=== PATIENT | female | born 1955 | race Caucasian/White ===

== ENCOUNTER 2024-11-16 13:46 | Outpatient (REF) | payer MEDICARE, MEDICAID, SELFPAY ==
--- NOTE | 2024-11-16 | EMG_ITS ---
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 EMG shows no voluntary electrical activity in the left UE DB muscle but is otherwise unremarkable and the left L4-S1 innervated muscles. Please see the complete electrophysiological report MTDD
--- OUTSIDE RECORDS SUMMARY | 2024-11-16 14:47 | XMS_ITS | Clinical Summary ---
Author Organization Patient Business Ser [facility] Address [address] [place] [address] Care Team Providers Care Agricultural Equipment Mechanic Name Role Phone Michelle King Primary Care Provider + Allergies No known active allergies Medications ARIPiprazole (ABILIFY) 2 mg tablet Take 1 tablet (2 mg total) by mouth at bedtime. 07/24/19 24 Active pantoprazole (PROTONIX) 40 mg EC tablet Take 1 tablet (40 mg total) by mouth 2 (two) times a day. Active ibuprofen (ADVIL,MOTRIN) 800 mg tablet Take 1 tablet (800 mg total) by mouth 1 (one) time each day if needed for moderate pain. 03/26/20 22 Active ondansetron (ZOFRAN) 4 mg tablet TAKE 1 TABLET BY MOUTH EVERY 8 HOURS NEEDED FOR NAUSEA 90 tablet 1 06/01/19 25 Active Additional Information Patient taking differently: 4 mg oral Every 8 hours PRN, nausea, Reported on 07/06/2024 venlafaxine HCl (venlafaxine ER) 225 mg 24 hr tablet Take 1 tablet (225 mg total) by mouth 1 (one) time each day. Take in addition to 37.5mg daily 07/01/19 25 Active venlafaxine HCl (venlafaxine ER) 37.5 mg 24 hr tablet Take 1 tablet (37.5 mg total) by mouth 1 (one) time each day. Take in addition to 225mg daily 05/11/19 25 Active hydrOXYzine pamoate (VISTARIL) 50 mg capsuleIndicatio ns:Anxiety Take 1 capsule (50 mg total) by mouth 3 (three) times a day if needed for anxiety. 30 capsule 07/09/19 25 Active oxyCODONE (ROXICODONE) 5 mg immediate release tabletIndication s:Alcohol-induce d acute pancreatitis without infection or necrosis Take 1 tablet (5 mg total) by mouth 1 (one) time each day if needed for severe pain. Max Daily Amount: 5 mg 10 tablet 07/31/19 25 Active LORazepam (ATIVAN) 2 mg tablet Take 1 tablet (2 mg total) by mouth at bedtime. 07/21/19 25 Active thiamine 100 mg tabletIndication s:Alcohol-induce d acute pancreatitis without infection or necrosis Take 1 tablet (100 mg total) by mouth 1 (one) time each day. 90 tablet 3 08/07/19 25 026 Active rOPINIRole (REQUIP) 1 mg tablet TAKE 1 TABLET BY MOUTH TWICE A DAY 180 tablet 1 09/09/19 25 Active raloxifene (EVISTA) 60 mg tablet TAKE 1 TABLET BY MOUTH 1 TIME EACH DAY. 90 tablet 1 09/11/19 25 Active lisinopriL (PRINIVIL,ZESTRI L) 5 mg tabletIndication s:Primary hypertension Take 1 tablet (5 mg total) by mouth 1 (one) time each day. 90 tablet 1 09/14/19 25 Active gabapentin (NEURONTIN) 300 mg capsule Take 1 capsule (300 mg total) by mouth 3 (three) times a day. 270 each 3 09/17/19 25 026 Active fluticasone propionate (FLONASE) 50 mcg/actuation nasal spray Administer 1 spray into each nostril 2 (two) times a day. Shake gently. Before first use, prime pump. After use, clean tip and replace cap. 16 g 3 10/18/19 25 Active folic acid (FOLVITE) 1 mg tabletIndication s:Alcohol-induce d acute pancreatitis without infection or necrosis Take 1 tablet (1 mg total) by mouth 1 (one) time each day. 90 each 3 11/06/19 25 026 Active folic acid (FOLVITE) 1 mg tabletIndication s:Alcohol-induce d acute pancreatitis without infection or necrosis Take 1 tablet (1 mg total) by mouth 1 (one) time each day. 90 each 3 08/07/19 25 025 Discontin ued(Reord er) Active Problems Problem Noted Date Diagnosed Date Hallux varus (acquired), right foot 10/12/2024 Hammertoe of right foot 10/12/2024 Contracture, right foot 10/12/2024 Metatarsalgia of right foot 10/12/2024 Insomnia 04/27/2021 Alcoholism ([facility] V24, [facility] V28) 03/16/2021 Overview (01/08/2024): Per 10/17/2020 wellness visit, quit drinking 20 yrs ago after drinking for years. Allergic rhinitis 03/16/2021 Anxiety and depression 03/16/2021 DDD (degenerative disc disease), lumbar 03/16/20 Overview (01/08/2024): 03/15/2020 L3-4 and L4-5. Grade 1, 3.9mm anterior spondylolisthesis L4 relative to L5. R sided facet joint disease. Diverticulosis 03/16/2021 GERD (gastroesophageal reflux disease) Assessment & Plan (03/16/2024 3:19 PM EST): Gout 03/16/2021 HTN (hypertension) 03/16/2021 ALEXIS (obstructive sleep apnea) 03/16/2021 Osteoporosis 03/16/2021 Peripheral neuropathy 03/16/2021 Restless leg syndrome 03/16/2021 Varicose veins of lower extremity 03/16/2021 Overview (01/08/2024): Bilaterally w/ pain. Vitamin D deficiency 03/16/2021 Resolved Problems Problem Noted Date Diagnosed Date Resolved Date Alcohol withdrawal syndrome with complication ([facility] V24, [facility] V28) 07/06/2024 07/08/2024 Anxiety 03/16/2021 07/30/2024 Encounters Date Type Department Care Team Description 11/04/2024 Telephone Gastroenterology - [address] [place] [address] Joyce Quinn PA 11/02/2024 3:00 PM EDT Office Visit Internal Medicine - [place] [facility] [address] [place] [phone] Michelle King PA Primary hypertension (Primary Dx); Alcohol-induced acute pancreatitis without infection or necrosis; Anxiety and depression 10/26/2024 2:15 PM EDT - 10/26/2024 11:59 PM EDT Hospital Encounter [facility] MRI [address] [place] [id number] Pancreatic lesion Discharge Disposition: Home or Self Care 10/13/2024 Telephone Orthopedic Surgery [place] [address] [phone] Joe Mercado DPM SURGERY 10/12/2024 2:45 PM EDT Office Visit Orthopedic Surgery [place] [address] [phone] Joe Mercado DPM Hallux varus (acquired), right foot (Primary Dx); Hammertoe of right foot; Contracture, right foot; Metatarsalgia of right foot 09/27/2024 2:45 PM EDT Office Visit Orthopedic Surgery [place] [address] [phone] Joe Mercado DPM Metatarsalgia of right foot (Primary Dx); Arthritis of both feet; Contracture, right foot 09/21/2024 3:00 PM EDT Procedure visit Orthopedic Surgery [place] [address] [phone] Joe Mercado DPM Metatarsalgia of right foot (Primary Dx); Arthritis of both feet; Hammertoe of left foot; Contracture, right foot 09/16/2024 Telephone Orthopedic Surgery [place] [address] [phone] Joe Mercado DPM my chart message 09/14/2024 2:45 PM EDT Office Visit Orthopedic Surgery [facility] [address] [phone] Joe Mercado DPWindy Right foot pain (Primary Dx); Arthritis of both feet; Metatarsalgia of right foot; Contracture, right foot; Capsulitis of left foot 09/07/2024 2:00 PM EDT Office Visit Orthopedic Surgery - [place] [address] [facility] [address] [place] [phone] Joe Mercado DPM Right foot pain (Primary Dx); Pain in left foot; Arthritis of both feet; Metatarsalgia of right foot 08/31/2024 3:15 PM EDT Office Visit Internal Medicine - [place] 175 [facility] [address] [place] [address] Michelle King PA Alcohol-induced acute pancreatitis without infection or necrosis (Primary Dx); Alcohol use disorder from Last 3 Months Surgical History Surgery Date Site/Laterality Comments ESOPHAGOGASTRODUODENOSCOPY 12/06/2014 PROCEDURE: TN ESOPHAGOGASTRODUODENOSCOPY TRANSORAL DIAGNOSTIC; COMMENT: Normal OTHER SURGICAL HISTORY 04/2018 Left PROCEDURE: TN ARTHRS WRST EXC&/RPR TRIANG FIBROCART&/JOINT; COMMENT: w/ ulnar shortening osteotomy L forearm. OTHER SURGICAL HISTORY Right right foot bunionecyomy Medical History Medical History Date Comments Restless leg syndrome 03/16/2021 DX:Restles s leg syndrome HTN (hypertension) 03/16/2021 DX:HTN (hyper tension) GERD (gastroesophageal reflu x disease) 03/16/2021 DX:GERD (gastroesophageal re flux disease) Gout 03/16/2021 DX:Gout History of fracture of phala nx of toe 03/16/2021 DX:History of fracture of ph alanx of toe; COMMENT: R hallux proximal phalanx fracture 10/2017. DDD (degenerative disc disea se), lumbar 03/16/2021 DX:DDD (degenerative disc di sease), lumbar; COMMENT: 03/15/2020 L3-4 and L4-5. Grade 1, 3.9mm anterior spondylolisthesis L4 relative to L5. R sided facet joint disease. Osteoporosis 03/16/2021 DX:Osteoporosis History of basal cell carcinoma 03/16/2021 DX:History of basal cell carcinoma; COMMENT: Below R eye. 06/2016 Alcoholism ([facility] V24, [facility] V28) 03/16/2021 DX:Alcoholism ([facility]) Diverticulosis 03/16/2021 DX:Diverticulosi s History of herpes zoster 03/16/2021 DX:Hist ory of herpes zoster; COMMENT: 07/12/2017 Varicose veins of lower extremity 03/16/2021 DX:Varicose veins of lower extremity; COMMENT: Bilaterally w/ pain. Allergic rhinitis 03/16/2021 DX:Allergic rh initis Vitamin D deficiency 03/16/2021 DX:Vitamin D deficiency ALEXIS (obstructive sleep apnea) 03/16/2021 DX :ALEXIS (obstructive sleep apnea) Anxiety and depression DX:Anxiet y and depression Insomnia DX:Insomnia Family History Medical History Relation Name Comments Anxiety disorder Brother Hypertension Brother Relation Name Status Comments Brother Alive Father Mother Social History Tobacco Use Types Packs/Day Years Used Date Smoking Tobacco: Former Cigarettes Q uit: 04/07/2001 Smokeless Tobacco: Never Alcohol Use Standard Drinks/Week Comments Yes 0 (1 standard drink = 0.6 oz pur e alcohol) Housing Instability Answer Date Recorde d Are you worried that in the next 2 months you may not have stable housing? No 04/19/2024 Food Access & Nutrition Answer Date Rec orded Do you have access to a vari ety of food including fruits and vegetables? Yes 07/08/2024 Access to Healthcare Answer Date Record ed Within the last 3 months, ho w many times did you visit the emergency department for your medical care? 0 04/19/2024 Health Literacy Answer Date Recorded How often do you need to hav e someone help you when you read instructions, pamphlets, or other written material from your doctor or pharmacy? Never 04/19/2024 Caregiver: How often do you need to have someone help you when you read instructions, pamphlets, or other written material from your doctor or pharmacy? Not on file 04/19/2024 Financial Risk Answer Date Recorded How hard is it for you to pa y for the very basics like food, housing, medical care, and air conditioning / heating? Not very hard 04/19/2024 Transportation Answer Date Recorded Has the lack of transportati on kept you from meetings, work, or from getting things needed for daily living? No Has the lack of transportati on kept you from medical appointments or from getting medications? No 04/19/2024 Social Isolation Answer Date Recorded How often do you feel lonely or isolated from those around you? Sometimes 04/19/2024 Food Risk Answer Date Recorded Within the past 12 months we worried whether our food would run out before we got money to buy more. Never true 07/08/2024 Within the past 12 months th e food we bought just didn't last and we didn't have money to get more. Never true 07/08/2024 Dependent Care Answer Date Recorded Do you need help finding or paying for care for your loved ones. For example, child and youth program assistant or elderly care for an older adult? No 04/19/2024 Education Answer Date Recorded Do you think completing more education or training, like finishing a GED, going to college, or learning a trade, would be helpful for you? No 04/19/2024 Employment and Income Answer Date Recor ded During the last four weeks, have you been actively looking for work? No 04/19/2024 Living Situation Answer Date Recorded What is your living situation? 0 04/19/2024 Interpersonal Safety Answer Date Record ed Physical Abuse 07/06/2024 Verbal Abuse 07/06/2024 Comments Unknown Sex and Gender Information Value Date Recorded Sex Assigned at Not on file Legal Sex Female 11:36 AM EST Gender Identity Not on file Sexual Orientation Not on file Occupation Industry Job Start Date Job End Date retired- Not on file Not on file Not on file Obstetrics History Para Term AB IAB SAB Ectopic Multiple Livin g Live Births 2 1 1 1 1 1 1 Date Outcome GA Total Labor Labor/2nd/3rd Weight Sex Type Anes PTL Faustina A1 A5 Name Clin SAB 1992 Term M Living Last Filed Vital Signs Vital Sign Reading Time Taken Comments Blood Pressure 116/70 11/02/2024 2:45 PM EDT Pulse 96 11/02/2024 2:45 PM EDT Temperature 36.3 C (97.3 F) 11/02/2024 2:45 PM EDT Respiratory Rate 13 07/08/2024 3:53 PM EDT Oxygen Saturation 96% 11/02/2024 2:45 PM EDT Inhaled Oxygen Concentration - - Weight 70.6 kg (155 lb 9.6 oz) 11/02/2024 2:45 P M EDT Height 157.5 cm (5' 2 ) 11/02/2024 2:45 PM EDT Body Mass Index 28.46 11/02/2024 2:45 PM EDT Plan of Treatment Upcoming Encounters Date Type Department Care Team (Late st Contact Info) Description 12/21/2024 3:30 PM EDT Office Visit Gastroenterology - [address] [place] [phone] Joyce Quinn PA [address] [place] [address] 01/25/2025 2:15 PM EDT Office Visit Internal Medicine - [place] [address] [facility] [address] [place] [phone] Michelle King PA [facility] [address] [place] [address] Scheduled Procedures Name Priority Associated Diagnoses Date/Ti me OSTEOTOMY METATARSAL Hallux varus (acquired), right foot Hammertoe of right foot Contracture, right foot Metatarsalgia of right foot REPAIR HAMMER TOE Hallux varus (acquired), right foot Hammertoe of right foot Contracture, right foot Metatarsalgia of right foot IMPLANT TO DIGIT OR LESSER METATARSAL Hallux varus (acquired), right foot Hammertoe of right foot Contracture, right foot Metatarsalgia of right foot OSTECTOMY FIXATION METATARSA L FIRST Hallux varus (acquired), right foot Hammertoe of right foot Contracture, right foot Metatarsalgia of right foot Health Maintenance Due Date Last Done Comments DTaP,Tdap,and Td Vaccines (1 - Tdap) 02/06/1975 Hepatitis A Vaccines (1 of 2 - Risk 2-dose series) 02/06/1975 Pneumococcal Vaccine: 50+ Years (1 of 2 - PCV) 02/06/1975 Zoster Vaccines (1 of 2) 02/06/1975 Hepatitis C Screening 04/27/2021 Medicare Annual Wellness Visit 04/27/2021 COVID-19 Vaccine ( season) 2023 04/03/2021, 08/19/2020, 07/20/2020 Influenza Vaccine (#1) 2024 Breast Cancer Screening 03/04/2025 03/04/2023 Social Influencers of Health Screening 07/08/2025 07/08/2024 Hypertension/CHF/CAD Annual BMP Blood Test 08/06/2025 08/06/2024, 07/08/2024, 07/07/2024, Additional history exists Falls Risk Assessment 11/02/2025 11/02/2024 , 07/08/2024, 04/26/2024 Cholesterol Screening (Lipid Panel) 08/18/2028 08/19/2023, 08/19/2023 Osteoporosis Screening (Bone Density Screening) 11/07/2030 11/07/2020, 11/07/2020 RSV Immunization Adult Patients (1 - 1-dose 75+ series) 02/06/2031 Colorectal Cancer Screening: Colonoscopy 03/23/2034 03/23/2024, 02/26/2019 Depression Screening Completed 10/26/2024 HIB Vaccines Aged Out No longer eligi ble based on patient's age to complete this topic HPV Vaccines Aged Out No longer eligi ble based on patient's age to complete this topic Hepatitis B Vaccines Aged Out No long er eligible based on patient's age to complete this topic IPV Vaccines Aged Out No longer eligi ble based on patient's age to complete this topic MMR Vaccines Aged Out No longer eligi ble based on patient's age to complete this topic Meningococcal ACWY Vaccine Aged Out N o longer eligible based on patient's age to complete this topic Meningococcal B Vaccine Aged Out No l onger eligible based on patient's age to complete this topic RSV Immunization Patients Under 20 months Aged Out No longer eligible based on patient's age to complete this topic Varicella Vaccines Aged Out No longer eligible based on patient's age to complete this topic Procedures Procedure Name Priority Date/Time Associated Diagnosis Comments MR ABDOMEN WO AND W CONTRAST MRCP Routine 10/26/2024 4:01 PM EDT Pancreatic lesion INJECTION TENDON OR LIGAMENT Routine 09/14/2024 2:45 PM EDT Capsulitis of left foot COMPREHENSIVE METABOLIC PANEL Routine 08/06/2024 3:12 PM EDT Alcohol-induced acute pancreatitis without infection or necrosis EXTERNAL COLONOSCOPY REPORT Routine 03/23/2024 11:24 AM EST LIPID PANEL Routine 08/19/2023 EXTERNAL MAMMOGRAM REPORT Routine 03/04/2023 1:52 PM EST ELIZABETH DEXA AXIAL SKELETON Routine 11/07/2020 2:58 PM EDT Age-related osteoporosis without current pathological fracture from Last 3 Months or Most Recently Relevant to Health Maintenance Results * MR Abdomen wo and w Contrast MRCP (10/26/2024 4:01 PM EDT) Anatomical Region Laterality Modality Body Magnetic Resonan ce 10/26/2024 5:07 PM EDT Impressions 10/26/2024 5:31 PM EDT There has been interval definition of a well-circumscribed fluid collection in the root of the mesentery closely related to the pancreas. Although this has slightly increased in overall size it has become much better defined and there is no internal enhancement. There is some T1 intrinsic hyperintensity which could represent high protein or blood products. The findings are now most likely related to pseudocyst. There is no longer any stranding of the peripancreatic soft tissues. There is no cholelithiasis or choledocholithiasis. No generalized dilation of the pancreatic duct. -------- FINAL REPORT -------- Dictated By: Salvador Sifuentes Dictated Date: 10/26/2024 17:07 ET Assigned Physician: Salvador Sifuentes Reviewed and Electronically Signed By: Salvador Sifuentes Signed Date: 10/26/2024 17:31 ET Workstation ID: [id number] Transcribed By: Self Edit Transcribed Date: 10/26/2024 17:07 ET Narrative 10/26/2024 5:31 PM EDT EXAMINATION: MRI ABDOMEN WITHOUT AND WITH IV CONTRAST CLINICAL INFORMATION: Pancreatic cyst/pseudocyst. Previous abnormal CT. Previous abnormal MRI. Evaluate for interval changes. COMPARISON: Portions of previous MRI 07/07/24. Portions of previous CT 07/06/24. TECHNIQUE: Anatomic and fluid sensitive MR sequences were obtained on a high-field platform to examine the abdomen. MRCP was performed. Imaging before and after the IV administration of contrast. Amount of IV contrast: 15 mL Type of contrast: Dotarem Volume of contrast discarded: 0 mL FINDINGS: The study is significantly limited due to motion. LIVER: The right lobe of the liver measures approximately 14.5 cm. The liver contour appears smooth. The background hepatic signal appears homogeneous. There is no suspicious focal liver lesion. BILIARY TRACT: There is no cholelithiasis or gallbladder wall thickening. No localized pericholecystic fluid. MRCP: There is no biliary dilation. No definite choledocholithiasis. Limited by motion. SPLEEN: The spleen measures 8.9 cm. No suspicious abnormality. PANCREAS: Abnormal. There is no significant pancreatic ductal dilation. The stranding in the peripancreatic fat on the previous studies has improved/resolved. There is a circumscribed T2 intense abnormality in the root of the mesentery closely related to the neck of the pancreas with mass effect upon the superior mesenteric vein. This measures approximately 3.2 x 1.9 x 1.8 cm. There are a few internal low signal components. There is a fairly well-defined distinct wall now present. This has hyperintensity on anatomic sequence and there is no significant enhancement. This has become much better defined and slightly larger. There is no internal enhancement. There is no other discrete peripancreatic collection. There is no definite evidence of a pseudoaneurysm. ADRENAL GLANDS: No suspicious abnormality. KIDNEYS: There are some T2 intense structures centrally likely parapelvic cysts. No suspicious renal mass. The kidneys enhance symmetrically. GASTROINTESTINAL TRACT: There is no definite bowel wall thickening. There is a small hiatal hernia. ABDOMINAL WALL: No significant hernia is appreciated. LYMPHOVASCULAR STRUCTURES AND FLUID: There is no abdominal aortic aneurysm. The portal vein enhances. No enlarged lymph nodes. No significant free fluid in the upper abdomen MUSCULOSKELETAL: No acute or suspicious osseous abnormality. VISUALIZED LOWER CHEST: No suspicious abnormality. Large [id number] localizing sequences suggest small uterine fibroids. This is not well evaluated. Procedure Note Salvador Sifuentes MD - 10/26/2024 EXAMINATION: MRI ABDOMEN WITHOUT AND WITH IV CONTRAST CLINICAL INFORMATION: Pancreatic cyst/pseudocyst. Previous abnormal CT. Previous abnormal MRI.Evaluate for interval changes. COMPARISON: Portions of previous MRI 07/07/24. Portions of previous CT 07/06/24. TECHNIQUE: Anatomic and fluid sensitive MR sequences were obtained on a high-fieldplatform to examine the abdomen. MRCP was performed. Imaging before and after the IV administration of contrast. Amount of IV contrast: 15 mL Type of contrast: Dotarem Volume of contrast discarded: 0 mL FINDINGS: The study is significantly limited due to motion. LIVER: The right lobe of the liver measures approximately 14.5 cm. Theliver contour appears smooth. The background hepatic signal appearshomogeneous. There is no suspicious focal liver lesion. BILIARY TRACT: There is no cholelithiasis or gallbladder wall thickening.No localized pericholecystic fluid. MRCP: There is no biliary dilation. No definite choledocholithiasis.Limited by motion. SPLEEN: The spleen measures 8.9 cm. No suspicious abnormality. PANCREAS: Abnormal. There is no significant pancreatic ductal dilation. The stranding in theperipancreatic fat on the previous studies has improved/resolved. There is a circumscribed T2 intense abnormality in the root of themesentery closely related to the neck of the pancreas with mass effectupon the superior mesenteric vein. This measures approximately 3.2 x 1.9 x1.8 cm. There are a few internal low signal components. There is a fairlywell-defined distinct wall now present. This has hyperintensity onanatomic sequence and there is no significant enhancement. This has becomemuch better defined and slightly larger. There is no internal enhancement. There is no other discrete peripancreatic collection. There is no definite evidence of a pseudoaneurysm. ADRENAL GLANDS: No suspicious abnormality. KIDNEYS: There are some T2 intense structures centrally likely parapelviccysts. No suspicious renal mass. The kidneys enhance symmetrically. GASTROINTESTINAL TRACT: There is no definite bowel wall thickening. Thereis a small hiatal hernia. ABDOMINAL WALL: No significant hernia is appreciated. LYMPHOVASCULAR STRUCTURES AND FLUID: There is no abdominal aorticaneurysm. The portal vein enhances. No enlarged lymph nodes. No significant free fluid in the upper abdomen MUSCULOSKELETAL: No acute or suspicious osseous abnormality. VISUALIZED LOWER CHEST: No suspicious abnormality. Large [id number] localizing sequences suggest small uterine fibroids.This is not well evaluated. IMPRESSION: There has been interval definition of a well-circumscribed fluidcollection in the root of the mesentery closely related to the pancreas. Although this has slightly increased in overall size it has become muchbetter defined and there is no internal enhancement. There is some [id number] hyperintensity which could represent high protein or bloodproducts. The findings are now most likely related to pseudocyst. There is no longer any stranding of the peripancreatic soft tissues. Thereis no cholelithiasis or choledocholithiasis. No generalized dilation of the pancreatic duct. -------- FINAL REPORT -------- Dictated By: Salvador Sifuentes Dictated Date: 10/26/2024 17:07 ET Assigned Physician: Salvador Sifuentes Reviewed and Electronically Signed By: Salvador Sifuentes Signed Date: 10/26/2024 17:31 ET Workstation ID: [id number] Transcribed By: Self Edit Transcribed Date: 10/26/2024 17:07 ET Namrata LONGO IMJordon MRI PROCEDURES Final R esult * Injection tendon or ligament (09/14/2024 2:45 PM EDT) Narrative Joe Mercado DPM - 09/14/2024 2:45 PM EDT Joe Mercado DPM 09/14/2024 6:52 PM Injection tendon or ligament Indications: pain Details: 25 G needle Medications: 0.5 mL lidocaine (PF) 1 %; 40 mg triamcinolone acetonide 40 mg/mL Informed Consent: Laterality: Left Joe Mercado DPM IN CLINIC/BEDSIDE ORDERABLE S Final Result * (ABNORMAL) Comprehensive metabolic panel (08/06/2024 3:12 PM EDT) Sodium 136 133 - 145 mmol/L LAB CHEMISTRY METHOD 08/06/2024 4:43 PM EDT [facility] Potassium 3.5 3.5 - 5.5 mmol/L LAB CHEMISTRY METHOD 08/06/2024 4:43 PM EDT [facility] Chloride 101 96 - 110 mmol/L LAB CHEMISTRY METHOD 08/06/2024 4:43 PM EDT [facility] CO2 25 21 - 32 mmol/L LAB CHEMISTRY METHOD 08/06/2024 4:43 PM EDT [facility] Anion Gap 10 3 - 11 LAB CHEMISTRY METHOD 08/06/2024 4:43 PM [facility] Glucose 100 70 - 100 mg/dL LAB CHEMISTRY METHOD 08/06/2024 4:43 PM [facility] BUN 11 5 - 25 mg/dL LAB CHEMISTRY METHOD 08/06/2024 4:43 PM [facility] Creatinine 0.46(L) 0.50 - 1.10 mg/dL LAB CHEMISTRY METHOD 08/06/2024 4:43 PM [facility] eGFR 104 >=60 mL/min/1. 73m2 LAB CHEMISTRY METHOD 08/06/2024 4:43 PM [facility] Comment:Calculation based on the Chronic Kidney Disease Epidemiology Collaboration (CKD-EPI) equation refit without adjustment for race. BUN/Creatinine Ratio 23.9 LAB CHEMISTRY METHOD 08/06/2024 4:43 PM [facility] Calcium 9.9 8.5 - 10.5 mg/dL LAB CHEMISTRY METHOD 08/06/2024 4:43 PM [facility] AST (SGOT) 12 10 - 42 unit/L LAB CHEMISTRY METHOD 08/06/2024 4:43 PM [facility] ALT (SGPT) 16 10 - 60 unit/L LAB CHEMISTRY METHOD 08/06/2024 4:43 PM [facility] Alkaline Phosphatase 69 42 - 121 unit/L LAB CHEMISTRY METHOD 08/06/2024 4:43 PM [facility] Total Protein 6.5 6.0 - 8.0 g/dL LAB CHEMISTRY METHOD 08/06/2024 4:43 PM [facility] Albumin 3.5 3.2 - 5.0 g/dL LAB CHEMISTRY METHOD 08/06/2024 4:43 PM [facility] Total Bilirubin 0.3 0.0 - 1.4 mg/dL LAB CHEMISTRY METHOD 08/06/2024 4:43 PM EDT [facility] Blood Venous blood specimen / Unknown Venipuncture / Unknown 08/06/2024 3:12 PM EDT 08/06/2024 3:37 PM EDT Simran Robin SNOW REMOVING SUPERVISOR LAB BLOOD ORDERABLES Final Re sult [facility] [address] [place] [address], [place] [phone] * External Colonoscopy Report (03/23/2024 11:24 AM EST) Anatomical Region Laterality Modality Endoscopy Historical Provider GI~PROCEDURE ORDERABLES F inal Result * (ABNORMAL) Lipid panel (08/19/2023) LDL/HDL Ratio 2 0 - 4 Triglycerides 62 0 - 150 mg/dL Cholesterol 239(A) 0 - 200 mg/dL HDL 121 >=40 mg/dL LDL Cholesterol 106(A) 0 - 100 mg/dL Blood Venous blood specimen / Unknown Historical Provider LAB BLOOD ORDERABLES Meredith l Result * External Mammogram Report (03/04/2023 1:52 PM EST) Anatomical Region Laterality Modality Mammography Historical Provider IMG BI PROCEDURES Final R esult * ELIZABETH DEXA AXIAL SKELETON (11/07/2020 2:58 PM EDT) Anatomical Region Laterality Modality Mammography 11/07/2020 12:4 5 PM EDT Narrative 11/07/2020 2:58 PM EDT [facility] Diagnostic Imaging Department [address], [place] [id number] Patient: OLLIE COBIAN /Age/Sex: 1955 - 65 - F Unit#: [id number] Location/Status: SPDIMAM/REG CLI Mnemonic[facility] Ordering Physician: Justin DILLARD MD [facility] Dexa Axial Skeleton - 11/07/201323 HISTORY: The patient is a 65-year-old postmenopausal female with clinical concern for metabolic bone disease. FINDINGS: Dual energy x-ray absorptiometry of the lumbar spine and femurs is performed. The mean bone mineral density at L1-2 is 0.945 gm/cm2 which is 81% of that of young normals and 92% of that of age matched controls. This yields a T- score of -1.8 and a Z-score of -0.7 which is diagnostic of osteopenia. The mean bone mineral density of the femurs bilaterally is 0.766 gm/cm2 which is 76% of that of young normals and 85% of that of age matched controls. This yields a T-score of -1.9 and a Z-score of -1.1 which is diagnostic of osteopenia. However, the T-score of the right femoral neck is -2.6 which is diagnostic of osteoporosis. IMPRESSION: 1. Osteoporosis. 2. FRAX analysis yields a 10-year probability of major osteoporotic fracture of 24.0% and a 10-year probability of hip fracture of 3.2%. Code 24337 Dictating Physician: MANJU TOURE MD Electronically Signed by: MANJU TOURE MD Dic Date/Time: 11/07/201456 Sign date/Time: 11/07/201457 Procedure Note Manju Toure MD - 04/03/2022 [facility] Diagnostic Imaging Department [address] [place] [id number] Patient: OLLIE COBIAN Robel DiggsB./Age/Sex: 1955 65 - F Unit#: [id number] Location/Status: SPDIMAM/REG CLI Mnemonic[facility] Ordering Physician: Justin DILLARD MD Elizabeth Dexa Axial Skeleton - 11/07/201323 HISTORY: The patient is a 65-year-old postmenopausal female withclinical concern for metabolic bone disease. FINDINGS: Dual energy x-ray absorptiometry of the lumbar spine and femursis performed. The mean bone mineral density at L1-2 is 0.945 gm/cm2 which is81% of that of young normals and 92% of that of age matched controls. This yieldsa T- score of -1.8 and a Z-score of -0.7 which is diagnostic of osteopenia. The mean bone mineral density of the femurs bilaterally is 0.766 gm/ri8edjdb is 76% of that of young normals and 85% of that of age matched controls.This yields a T-score of -1.9 and a Z-score of -1.1 which is diagnostic of osteopenia. However, the T-score of the right femoral neck is -2.6 whichis diagnostic of osteoporosis. IMPRESSION: 1. Osteoporosis. 2. FRAX analysis yields a 10-year probability of major osteoporoticfracture of 24.0% and a 10-year probability of hip fracture of 3.2%. Code 57754 Dictating Physician: MANJU TOURE MD Electronically Signed by: MANJU TOURE MD Dic Date/Time: 11/07/20 1457 Sign date/Time: 11/07/20 1458 us Abby Dillard MD IMG BI PROCEDURES Meredith l Result from Last 3 Months or Most Recently Relevant to Health Maintenance Insurance MEDICARE [place]ICA[place] - [place] Advance Directives * Full Code - Confirmed (Latest Code Status on File) Date Activated Date Inactivated Comments 07/06/2024 5:08 PM 07/08/2024 7:50 PM This code stat us was ascertained in the following way: Code status discussion: discussion with patient To update the patient's code status, place a code status order. Do not modify or discontinue any currently active code status orders. * Full Code - Default Date Activated Date Inactivated Comments 07/06/2024 2:57 PM 07/06/2024 5:08 PM This is order is used when code status has not been discussed with the patient, or code status is otherwise unknown/unconfirmed To update the patient's code status, place a code status order. Do not modify or discontinue any currently active code status orders. Care Teams Agricultural Equipment Mechanic Relationship Specialty Start Date End Date Michelle King PA [address] [place] [address] PCP - General Internal Medicine 05/03/21
== END 2024-11-16 13:47 | disposition home or self-care (01) ==
LOC: HO.NEURO 13:46
PROVIDERS: Visit Provider Psychiatry & Neurology Neurology
DX: G62.9 Polyneuropathy, unspecified (principal); R20.0 Anesthesia of skin
CPT/HCPCS: 95885; 95911

== ENCOUNTER → 2024-11-16 14:03 | Outpatient (BNV) | payer MEDICARE, MEDICAID, SELFPAY | PROVIDERS: Visit Provider Psychiatry & Neurology Neurology | DX: G57.32 Lesion of lateral popliteal nerve, left lower limb (principal) | CPT/HCPCS: 95886; 95911 ==

== ENCOUNTER 2024-11-30 14:42 | Outpatient (AMB) | payer MEDICARE, MEDICAID, SELFPAY ==
--- NOTE | 2024-11-30 14:49 | A.OFFVIS_ITS ---
Intake Visit Reasons: PN Allergies No Known Allergies Allergy (Verified 11/23/24 07:29) Medication List - Last Reconciled 11/30/24 by Moraima Bruno MD aripiprazole 3 mg PO QAM fluticasone propionate 50 mcg/actuation intranasal folic acid 1 mg PO DAILY gabapentin 300 mg PO TID hydroxyzine pamoate 50 - 100 mg PO BEDTIME PRN pantoprazole 40 mg PO BID raloxifene 60 mg PO DAILY ropinirole 1 mg PO BID thiamine HCl (vitamin B1) 100 mg PO DAILY venlafaxine ER 225 mg PO DAILY venlafaxine ER 37.5 mg PO DAILY HPI Comments Details: This a 69-year-old woman with a lifelong history of alcohol abuse, drinking 8-9 vodkas a day till about 85 days ago when she quit.? She has a 6-12 month history of numbness, tingling and painful paresthesia in her feet symmetrically.? Recently, she has started? Gabapentin 300 mg 3 times a day, which seems to have helped significantly.? 3 months ago she was hospitalized for pancreatitis and since then she is quit drinking and is taking B1 vitamins, and a multivitamin. 2 months of lightheadedness when she gets up and feels unsteady. No vertigo. Stopped drinking 5 months ago. [facility] Medical History (Updated 11/30/24 @ 14:51 by Moraima Bruno MD) Alcohol abuse Peripheral neuropathy Review of Systems Const Details: Sleep:? Difficulty getting to sleepdenies.? Difficulty maintaining sleepdenies?.? Urge to move legsdenies.? Teeth grindingdenies.? Shouting or Kicking during sleep denies.? Abnormal behavior during sleepdenies.? Excessive sleepdenies.? Snoring denies.? Daytime sleepinessdenies. ???General/Constitutional:? Change in appetitedenies.? Chillsdenies.? Fatiguedenies.? Feverdenies.? Weight gaindenies.? Weight lossdenies. ???Ophthalmologic:? Blurred visiondenies.? Diminished visual acuitydenies. ???ENT:? Stuffinessdenies.? Decreased hearingdenies.? Dry mouthdenies.? Ear paindenies.? Nosebleeddenies.? Ringing in the earsdenies.? Sinus paindenies.? Sore throat denies.? Swollen glandsdenies. ???Endocrine:? Cold intolerancedenies.? Excessive thirstdenies.? Frequent urinationdenies.? Heat intolerancedenies. ???Respiratory:? Shortness of breathdenies.? Chest paindenies.? Coughdenies. ???Breast:? Breast lumpdenies.? Nipple dischargedenies. ???Cardiovascular:? Chest pain at restdenies.? Chest pain with exertiondenies.? Claudicationdenies .? Dizzinessdenies.? Fluid accumulation in the legsdenies.? Irregular heartbeat denies.? Palpitationsdenies. ???Gastrointestinal:? Abdominal paindenies.? Constipationdenies.? Diarrheadenies.? Difficulty swallowingdenies.? Heartburndenies.? Nauseadenies.? Rectal bleedingdenies. ???Hematology:? Easy bruisingdenies.? Prolonged bleedingdenies. ???Genitourinary:? Frequent urinationdenies.? Urgencydenies.? Incontinencedenies.? Erectile Dysfunctiondenies. ???Musculoskeletal:? Neck paindenies.? Back paindenies.? Muscle achesdenies.? Painful jointsdenies.? Sciaticadenies.? Weaknessdenies. ???Podiatric:? Difficulty walkingdenies.? Foot numbnessdenies. ???Neurologic:? Difficulty swallowingdenies.? Balance difficultydenies.? Coordinationnormal.? Difficulty speakingdenies.? Dizzinessdenies.? Faintingdenies.? Gait abnormality denies.? Headachedenies.? Loss of strengthdenies.? Loss of use of extremity denies.? Low back paindenies.? Memory lossdenies.? Seizuresdenies.? Ticsdenies.? Tingling/Numbnessdenies.? Transient loss of visiondenies.? Tremordenies. ???Psychiatric:? Anxietydenies.? Auditory/visual hallucinationsdenies.? Delusionsdenies.? Depressed mooddenies.? Stressorsdenies.? Substance abusedenies.? Suicidal thoughtsdenies. Physical Exam Neuro Other: Neurological: Abnormal neurological findings:??distal blunting of pin prick and vibration in toes.?Mental Status:??alert and oriented X 3,?Normal attention, orientation, memory and affect.?Cranial Nerves:??Pupils are equal, round and reactive to light. Fundoscopy shows normal disc bilaterally. External occular muscles are intact. Visual elliott are full, no ptosis. Face is symmetrical, no facial weakness or droop. Facial sensations are normal. Tongue protrudes in midline. Palate elevates symmetrically. Shoulder shrugging is normal..?Motor Examination:??Normal muscle tone, bulk and strength,?No atrophy or fasciculations,?No drift of the extended upper extremities,?Deep tendon reflexes are 2+?,?Plantars are flexor?.?Motor Strength:?Proximal Muscles (out of 5):5 Distal Muscles (out of 5):5Neck Flexors (out of 5):5Neck Extensors (out of 5):5 Deltoid (out of 5):5Biceps (out of 5):5Triceps (out of 5):5Serratus Anterior (out of 5):5Wrist Extensors (out of 5):5APB (out of 5):5Finger Spread (out of 5):5Ileopsoas (out of 5):5Quadriceps (out of 5):5Hamstrings (out of 5):5Tibialis Anterior (out of 5):5Peronei (out of 5):5EDB (out of 5):5Gastrocnemius (out of 5):5Straight Leg Raising:??90 degrees.?Sensory Exam:??As above, otherwise normal light touch, temperature, pinprick, vibration and joint-position sensations?,?Rhomberg sign is absent.?Coordination:??no ataxia,?no titubation,?fpireg-fg-daho, yjuv-rxtz-dsdw test and rapid alternating movements were normal.?Gait Exam:??Within normal limits.?Cerebellar Signs:??Rlgpqa-ti-xmjq and wmco-bb-ihze is normal,?no dysdiadochokinesia?.?Extrapyramidal System:??No tremor, rigidity with normal facial expressions,?No bradykinesia, no bradyphrenia. Normal arm swing and posture. No propulsion or retropulsion.?Speech:??Normal,?no dysphasia or dysarthria..? Mini Mental Status Exam: Level of Consciousness:??Alert.?Orientation:??Knows correct year, month, date, day and season,?Knows correct city, county and state. Knows correct location and floor.?Registration:??Able to register 3 objects.?Attention:??Serial 7's performed accurately.?Recall:??Able to recall 3 out of 3 objects.?Language:??Normal spontaneous speech, fluency, repetition,naming, comprehension, reading and writing.?Total Score:??30/30.? General Examination: GENERAL APPEARANCE:??normal,?in no acute distress.?HEAD:??normocephalic,?atraumatic.?EYES:??sclera non- icteric,?conjunctiva clear.?EARS:??auditory canal clear,?tympanic membrane intact, clear.?NOSE:??no lesions.?ORAL CAVITY:??gums normal,?mucosa moist,?no lesions.?THROAT:??clear.?NECK/THYROID:??no cervical lymphadenopathy,?thyroid normal,?neck supple, full range of motion,?no carotid bruit.?SKIN:??no rashes,?no significant birthmarks.?HEART:??S1, S2 normal,?no murmurs.?LUNGS:??clear anteriorly and posteriorly.?CHEST:??no gross rib deformity,?clear to auscultation.?BACK:??normal exam of spine.?EXTREMITIES:??no edema.?PERIPHERAL PULSES:??normal.? Results Reviewed Results Reviewed: 11/16/24 NCV/EMG of lower extremities: Complete motor axonal loss in the left peroneal nerve with low sensory amplitude in the sural and superficial peroneal nerves consistent with motor neuropathy of the left peroneal as well as early sensory neuropathy. EMG shows no voluntary electrical activity in the left EDB muscle, but is otherwise unremarkable and the left L4-S1 innervated muscles. Assessment & Plan Assessment & Plan (1) Peripheral neuropathy: Code(s): G62.9 - Polyneuropathy, unspecified Category: Medical (2) Alcohol abuse: Code(s): F10.10 - Alcohol abuse, uncomplicated Category: Social Hx Plan Taper Gabapentin over 2 weeks to see if it is contributing to dizziness and to see if it is helping with neuropathic pain. Coding Level of Care Code Est Pt Level 4 (36267) Diagnoses Peripheral neuropathy G62.9 Alcohol abuse F10.10
--- OUTSIDE RECORDS SUMMARY | 2024-11-30 15:37 | XMS_ITS | Clinical Summary ---
Author Organization Patient Business Ser [facility] Address [address] [place] [address] Care Team Providers Care Market Research Lead Name Role Phone Michelle King Primary Care [...] of right foot 10/12/2024 Insomnia 04/27/2021 Alcoholism ([facility] V24, [facility] V28) 03/16/2021 Overview (01/08/2024): Per 10/17/2020 wellness [...] Resolved Date Alcohol withdrawal syndrome with complication ([facility] V24, [facility] V28) 07/06/2024 07/08/2024 Anxiety 03/16/2021 07/30/2024 Encounters Date Type Department Care Team Description 11/04/2024 Telephone Gastroenterology - [address] [place] [address] Joyce Quinn PA 11/02/2024 3:00 PM EDT Office Visit Internal Medicine - [place] [address] [facility] [address] [place] [phone] Michelle King PA Primary hypertension (Primary Dx); Alcohol-induced acute pancreatitis without infection or necrosis; Anxiety and depression 10/26/2024 2:15 PM EDT - 10/26/2024 11:59 PM EDT Hospital Encounter [facility] MRI [address] [place] [id number] Pancreatic lesion Discharge Disposition: Home or Self Care 10/13/2024 Telephone Orthopedic Surgery [place] [address] [phone] Joe Mercado DPWindy 10/12/2024 2:45 PM EDT Office Visit Orthopedic Surgery [place] [address] [phone] Joe Mercado, DPM Hallux varus (acquired), right foot (Primary Dx); Hammertoe of right foot; Contracture, right foot; Metatarsalgia of right foot 09/27/2024 2:45 PM EDT Office Visit Orthopedic Surgery [place] [address] [phone] Joe Mercado, DPM Metatarsalgia of right foot (Primary Dx); Arthritis of both feet; Contracture, right foot 09/21/2024 3:00 PM EDT Procedure visit Orthopedic Surgery [place] [address] [phone] Joe Mercado, DPM Metatarsalgia of right foot (Primary Dx); Arthritis of both feet; Hammertoe of left foot; Contracture, right foot 09/16/2024 Telephone Orthopedic Surgery [place] [address] [phone] Joe Mercado DPM 09/14/2024 2:45 PM EDT Office Visit Orthopedic Surgery [facility] [address] [phone] Joe Mercado DPM Right foot pain (Primary Dx); Arthritis of both feet; Metatarsalgia of right foot; Contracture, right foot; Capsulitis of left foot 09/07/2024 2:00 PM EDT Office Visit Orthopedic Surgery - [place] [address] [facility] [address] [place] [phone] JessJoe galicia DPM Right foot pain (Primary Dx); Pain in left foot; Arthritis of both feet; Metatarsalgia of right foot 08/31/2024 3:15 PM EDT Office Visit Internal Medicine - [place] 175 [facility] [address] [place] [phone] Michelle King PA Alcohol-induced acute pancreatitis without infection or necrosis (Primary Dx); Alcohol use disorder from Last 3 Months Surgical History Surgery Date Site/Laterality Comments ESOPHAGOGASTRODUODENOSCOPY 12/06/2014 PROCEDURE: OR ESOPHAGOGASTRODUODENOSCOPY TRANSORAL DIAGNOSTIC; COMMENT: Normal OTHER SURGICAL HISTORY 04/2018 Left PROCEDURE: OR ARTHRS WRST EXC&/RPR TRIANG FIBROCART&/JOINT; COMMENT: w/ [...] carcinoma; COMMENT: Below R eye. 06/2016 Alcoholism (CMS/HCC V24, [facility] V28) 03/16/2021 DX:Alcoholism (HCC) Diverticulosis 03/16/2021 DX:Diverticulosi s History of herpes [...] care for your loved ones. For example, director of early childhood education or elderly care for an older adult? [...] on file Not on file Obstetrics History * This document contains information received from the source organization and may not represent a complete record from that organization. Para Term AB IAB SAB Ectopic Multiple Livin g Live Births 2 1 1 1 1 Date Outcome GA Total Labor Labor/2nd/3rd Weight Sex Type Anes PTL Faustina A1 A5 Name Clin 1991 Term M Living Last Filed Vital Signs [...] PM EDT Office Visit Gastroenterology - 299 [facility] [address] [facility] [address] [place] [phone] Joyce Quinn PA [address] [facility] [place] [address] [place] [address] 01/25/2025 2:15 PM EDT Office Visit Internal Medicine - [place] 175 [facility] [address] [place] [address] Michelle King PA [address] [place] [address] Scheduled Procedures Name Priority Associated Diagnoses Date/Ti [...] Signed Date: 10/26/2024 17:31 ET Workstation ID: [id number] Transcribed By: Self Edit Transcribed Date: 10/26/2024 [...] VISUALIZED LOWER CHEST: No suspicious abnormality. Large gagpk-ml-zhto localizing sequences suggest small uterine fibroids. This [...] VISUALIZED LOWER CHEST: No suspicious abnormality. Large zlmnn-fb-nwgj localizing sequences suggest small uterine fibroids.This is not well evaluated. IMPRESSION: There has been interval definition of a well-circumscribed fluidcollection in the root of the mesentery closely related to the pancreas. Although this has slightly increased in overall size it has become muchbetter defined and there is no internal enhancement. There is some S0lzueszipq hyperintensity which could represent high protein or [...] Signed Date: 10/26/2024 17:31 ET Workstation ID: [id number] Transcribed By: Self Edit Transcribed Date: 10/26/2024 [...] LAB CHEMISTRY METHOD 08/06/2024 4:43 PM EDT [facility] Potassium 3.5 3.5 - 5.5 mmol/L LAB CHEMISTRY METHOD 08/06/2024 4:43 PM EDT [facility] Chloride 101 96 - 110 mmol/L LAB CHEMISTRY METHOD 08/06/2024 4:43 PM EDT [facility] CO2 25 21 - 32 mmol/L LAB CHEMISTRY METHOD 08/06/2024 4:43 PM EDT [facility] Anion Gap 10 3 - 11 LAB CHEMISTRY METHOD 08/06/2024 4:43 PM [facility] Glucose 100 70 - 100 mg/dL LAB CHEMISTRY METHOD 08/06/2024 4:43 PM [facility] BUN 11 5 - 25 mg/dL LAB CHEMISTRY METHOD 08/06/2024 4:43 PM [facility] Creatinine 0.46(L) 0.50 - 1.10 mg/dL LAB CHEMISTRY METHOD 08/06/2024 4:43 PM [facility] eGFR 104 >=60 mL/min/1. 73m2 LAB CHEMISTRY METHOD 08/06/2024 4:43 PM [facility] Comment:Calculation based on the Chronic Kidney Disease Epidemiology Collaboration (CKD-EPI) equation refit without adjustment for race. BUN/Creatinine Ratio 23.9 LAB CHEMISTRY METHOD 08/06/2024 4:43 PM [facility] Calcium 9.9 8.5 - 10.5 mg/dL LAB CHEMISTRY METHOD 08/06/2024 4:43 PM [facility] AST (SGOT) 12 10 - 42 unit/L LAB CHEMISTRY METHOD 08/06/2024 4:43 PM [facility] ALT (SGPT) 16 10 - 60 unit/L LAB CHEMISTRY METHOD 08/06/2024 4:43 PM [facility] Alkaline Phosphatase 69 42 - 121 unit/L LAB CHEMISTRY METHOD 08/06/2024 4:43 PM [facility] Total Protein 6.5 6.0 - 8.0 g/dL LAB CHEMISTRY METHOD 08/06/2024 4:43 PM [facility] Albumin 3.5 3.2 - 5.0 g/dL LAB CHEMISTRY METHOD 08/06/2024 4:43 PM [facility] Total Bilirubin 0.3 0.0 - 1.4 mg/dL LAB CHEMISTRY METHOD 08/06/2024 4:43 PM EDT [facility] Blood Venous blood specimen / Unknown Venipuncture / Unknown 08/06/2024 3:12 PM EDT 08/06/2024 3:37 PM EDT Simran Robin HEALTH SAFETY INSTRUCTOR LAB BLOOD ORDERABLES Final Re sult [facility] ([facility] [address] [place] [address], * External Colonoscopy Report (03/23/2024 11:24 AM [...] PM EDT Narrative 11/07/2020 2:58 PM EDT [facility] Diagnostic Imaging Department [address] [place], [place] [id number] Patient: OLLIE COBIAN /Age/Sex: 1955 - 65 - F Unit#: [id number] Location/Status: SPDIMAM/REG CLI Mnemonic[facility] Ordering Physician: Justin DILLARD MD [facility] Dexa Axial Skeleton - 11/07/201323 HISTORY: The [...] probability of hip fracture of 3.2%. Code 68333 Dictating Physician: MANJU TOURE MD Electronically Signed by: MANJU TOURE MD Dic Date/Time: 11/07/201456 Sign date/Time: 11/07/201457 Procedure Note Manju Toure MD - 04/03/2022 [facility] Diagnostic Imaging Department [address] [place] [address] Patient: OLLIE COBIAN /Age/Sex: 1955 - 65 - F Unit#: [id number] Location/Status: SPDIMAM/REG CLI Mnemonic/Ordering Site: [facility] Ordering Physician: Justin DILLARD MD [facility] Dexa [...] density of the femurs bilaterally is 0.766 gm/xk7sayua is 76% of that of young normals [...] probability of hip fracture of 3.2%. Code 96588 Dictating Physician: MANJU TOURE MD Electronically Signed by: MANJU TOURE MD Dic Date/Time: 11/07/20 1457 Sign date/Time: 11/07/20 145 us Abby Dillard MD IMG BI PROCEDURES [...] currently active code status orders. Care Teams Market Research Lead Relationship Specialty Start Date End Date Michelle King PA [address] [place] [address] PCP - General Internal Medicine 05/03/21
--- OUTSIDE RECORDS SUMMARY | 2024-11-30 15:37 | XMS_ITS | Encounter Summary ---
Author Organization [facility] Address [address] [place] [address] Care Team Providers Care Social Media Executive Name Role Phone Michelle King Primary Care Provider + Encounter Details Date Type Department Care Team (Late Contact Info) Description 03/24/2024 Lab Requisition [facility] - Main Lab 299 [facility] [place] [address] Graham Lozada MD [address] [address] Encounter for screening for malignant neoplasm of colon Social History Tobacco Use Types Packs/Day Years Used Date Smoking Tobacco: Former Cigarettes Q uit: 04/07/2001 Smokeless Tobacco: Never Alcohol Use Standard Drinks/Week Comments Yes 0 (1 standard drink = 0.6 oz pur e alcohol) Comments Unknown Sex and Gender Information Value Date Recorded Sex Assigned at Not on file Legal Sex Female 11:36 AM EST Gender Identity Not on file Sexual Orientation Not on file Occupation Industry Job Start Date Job End Date retired- Not on file Not on file Not on file documented as of this encounter Plan of Treatment Upcoming Encounters Date Type Department Care Team (Late Contact Info) Description 12/21/2024 3:30 PM EDT Office Visit Gastroenterology - 299 [address] 299 [facility] [address] [place] [phone] Joyce Quinn PA [address] [address] 01/25/2025 2:15 PM EDT Office Visit Internal Medicine - [facility] [address] [facility] [address] [place] [address] Michelle King, QING [address] [place] [address] Scheduled Procedures Name Priority Associated Diagnoses Date/Ti [...] Contracture, right foot Metatarsalgia of right foot documented as of this encounter Procedures Procedure Name Priority Date/Time Associated Diagnosis Comments TISSUE EXAM Routine 03/23/2024 Encounter for screening for malignant neoplasm of colon documented in this encounter Results * Tissue Exam (03/23/2024) Final Diagnosis A. Polyp, ascending colon, polypectomy: Tubular adenoma (two fragments). B. Polyps (x2 per specimen label), splenic flexure, polypectomy: Tubular adenoma(s) (two fragments). C. Polyp, rectum, polypectomy: Tubular adenoma (two fragments). D. Mid-esophagus, biopsy: Esophageal squamous mucosa with mild spongiosis; otherwise no diagnostic histopathologic change. No intraepithelial eosinophils and no glandular epithelium identified. 03/25/2024 1:49 PM EST [facility] ([facility]) [facility] Clinical Information Personal history of colonic polyps Dysphagia Finding: Polyp, history of Rosenthal's 03/25/2024 1:49 PM [facility] ([facility]) [facility] Gross Description A. Colon, ascending colon polyp: Labeled ascending colon polyp . Received in formalin are two rubbery, moreno-brown tissues, approximately measuring 0.4 cm and 0.5 cm in greatest diameters, which are wrapped in paper and submitted in toto in one cassette, two pieces, multiple levels. B. Colon, splenic flexure polyps x 2: Labeled splenic flexure colon polyp x 2 . Received in formalin, are two soft to rubbery, moreno, polypoid tissues, approximately measuring 0.2 cm and 0.6 cm, in greatest diameters, which are differentially inked at their bases, wrapped in paper and submitted in toto in one cassette, two pieces, multiple levels. C. Colon, rectum polyp: Labeled rectum colon polyp . Received in formalin are two rubbery, moreno tissues, approximately measuring 0.4 cm and 0.5 cm in greatest diameters, which are wrapped in paper and submitted in toto in one cassette, two pieces, multiple levels. D. Esophagus, mid biopsy: Labeled mid esophagus biopsy . Received in formalin are two soft to friable, white-brown tissues, approximately measuring 0.3 cm and 0.5 cm in greatest diameters, which are wrapped in paper and submitted in toto in one cassette, two pieces, multiple levels. dvb/DG 03/25/2024 1:49 PM EST [facility] Disclaimer Unless otherwise specified, all tissue is 10% NB formalin fixed and paraffin embedded. 03/25/2024 1:49 PM EST [facility] Tissue Esophageal structure / Unknown 03/23/2024 03/24/2024 8:14 AM EST Tissue specimen (specimen) Colon structure / Unknown 03/23/2024 03/24/2024 8:14 AM EST Tissue specimen (specimen) Colon structure / Unknown 03/23/2024 03/24/2024 8:14 AM EST Tissue specimen (specimen) Esophageal structure / Unknown 03/23/2024 03/24/2024 8:14 AM EST Graham Lozada MD LAB PATHOLOGY ORDERABLES Fi nal Result [facility] [address] [place] [address], documented in this encounter Visit Diagnoses Diagnosis Encounter for screening for malignant neoplasm of colon documented in this encounter Care Teams Social Media Executive Relationship Specialty Start Date End Date Kalnenieks, Michelle C, PA 175 [place] [address] PCP - General Internal Medicine 05/03/21 documented as of this encounter
== END 2024-11-30 16:42 | disposition home or self-care (01) ==
LOC: HO.HSM 14:42
PROVIDERS: PCP Physician Assistant; Referring Provider Physician Assistant; Visit Provider Psychiatry & Neurology Neurology
DX: G62.9 Polyneuropathy, unspecified (principal); F10.10 Alcohol abuse, uncomplicated
CPT/HCPCS: 99214

== ENCOUNTER → 2024-11-30 14:42 | Outpatient (BNVA) | payer MEDICARE, OTHER, SELFPAY | PROVIDERS: PCP Physician Assistant; Referring Provider Physician Assistant; Visit Provider Psychiatry & Neurology Neurology | DX: G62.9 Polyneuropathy, unspecified (principal); F10.10 Alcohol abuse, uncomplicated | CPT/HCPCS: 99212 ==

== ENCOUNTER 2025-03-01 12:38 | Outpatient (AMB) | payer MEDICARE, MEDICAID, SELFPAY ==
--- NOTE | 2025-03-01 12:56 | A.OFFVIS_ITS ---
Intake Visit Reasons: 3m Allergies No Known Allergies Allergy (Verified 11/23/24 07:29) Medication List - Last Reconciled 03/01/25 by Moraima Bruno MD aripiprazole 3 mg PO QAM fluticasone propionate 50 mcg/actuation intranasal folic acid 1 mg PO DAILY gabapentin 300 mg PO BID hydroxyzine pamoate 50 - 100 mg PO BEDTIME PRN pantoprazole 40 mg PO BID raloxifene 60 mg PO DAILY ropinirole 1 mg PO BID thiamine HCl (vitamin B1) 100 mg PO DAILY venlafaxine ER 225 mg PO DAILY venlafaxine ER 37.5 mg PO DAILY HPI Comments Details: This a 69-year-old woman with a lifelong history of alcohol abuse, drinking 8-9 vodkas a day till about 85 days ago when she quit.? For the last 1-2 months her balance is worse and loses balance if not using acane. She has a 6-12 month history of numbness, tingling and painful paresthesia in her feet symmetrically.? Recently, her Gabapentin 300 mg bid, which seems to have helped significantly.? 3 months ago she was hospitalized for pancreatitis and since then she is quit drinking and is taking B1 vitamins, and a multivitamin. 2 months of lightheadedness when she gets up and feels unsteady. No vertigo. Stopped drinking 5 months ago. [facility] Medical History (Updated 03/01/25 @ 13:09 by Moraima Bruno MD) Alcohol abuse Peripheral neuropathy Review of Systems Const Details: Sleep:? Difficulty getting to sleepdenies.? Difficulty maintaining sleepdenies?.? Urge to move legsdenies.? Teeth grindingdenies.? Shouting or Kicking during sleep denies.? Abnormal behavior during sleepdenies.? Excessive sleepdenies.? Snoring denies.? Daytime sleepinessdenies. ???General/Constitutional:? Change in appetitedenies.? Chillsdenies.? Fatiguedenies.? Feverdenies.? Weight gaindenies.? Weight lossdenies. ???Ophthalmologic:? Blurred visiondenies.? Diminished visual acuitydenies. ???ENT:? Stuffinessdenies.? Decreased hearingdenies.? Dry mouthdenies.? Ear paindenies.? Nosebleeddenies.? Ringing in the earsdenies.? Sinus paindenies.? Sore throat denies.? Swollen glandsdenies. ???Endocrine:? Cold intolerancedenies.? Excessive thirstdenies.? Frequent urinationdenies.? Heat intolerancedenies. ???Respiratory:? Shortness of breathdenies.? Chest paindenies.? Coughdenies. ???Breast:? Breast lumpdenies.? Nipple dischargedenies. ???Cardiovascular:? Chest pain at restdenies.? Chest pain with exertiondenies.? Claudicationdenies .? Dizzinessdenies.? Fluid accumulation in the legsdenies.? Irregular heartbeat denies.? Palpitationsdenies. ???Gastrointestinal:? Abdominal paindenies.? Constipationdenies.? Diarrheadenies.? Difficulty swallowingdenies.? Heartburndenies.? Nauseadenies.? Rectal bleedingdenies. ???Hematology:? Easy bruisingdenies.? Prolonged bleedingdenies. ???Genitourinary:? Frequent urinationdenies.? Urgencydenies.? Incontinencedenies.? Erectile Dysfunctiondenies. ???Musculoskeletal:? Neck paindenies.? Back paindenies.? Muscle achesdenies.? Painful jointsdenies.? Sciaticadenies.? Weaknessdenies. ???Podiatric:? Difficulty walkingdenies.? Foot numbnessdenies. ???Neurologic:? Difficulty swallowingdenies.? Balance difficultydenies.? Coordinationnormal.? Difficulty speakingdenies.? Dizzinessdenies.? Faintingdenies.? Gait abnormality denies.? Headachedenies.? Loss of strengthdenies.? Loss of use of extremity denies.? Low back paindenies.? Memory lossdenies.? Seizuresdenies.? Ticsdenies.? Tingling/Numbnessdenies.? Transient loss of visiondenies.? Tremordenies. ???Psychiatric:? Anxietydenies.? Auditory/visual hallucinationsdenies.? Delusionsdenies.? Depressed mooddenies.? Stressorsdenies.? Substance abusedenies.? Suicidal thoughtsdenies. Physical Exam Neuro Other: Neurological: Abnormal neurological findings:??distal blunting of pin prick and vibration in toes.?Mental Status:??alert and oriented X 3,?Normal attention, orientation, memory and affect.?Cranial Nerves:??Pupils are equal, round and reactive to light. Fundoscopy shows normal disc bilaterally. External occular muscles are intact. Visual elliott are full, no ptosis. Face is symmetrical, no facial weakness or droop. Facial sensations are normal. Tongue protrudes in midline. Palate elevates symmetrically. Shoulder shrugging is normal..?Motor Examination:??Normal muscle tone, bulk and strength,?No atrophy or fasciculations,?No drift of the extended upper extremities,?Deep tendon reflexes are 2+ with absent left AJ?,?Plantars are flexor?.?Motor Strength:?Proximal Muscles (out of 5):5Distal Muscles (out of 5):5Neck Flexors (out of 5):5Neck Extensors (out of 5):5Deltoid (out of 5):5Biceps (out of 5):5Triceps (out of 5): 5Serratus Anterior (out of 5):5Wrist Extensors (out of 5):5APB (out of 5):5 Finger Spread (out of 5):5Ileopsoas (out of 5):5Quadriceps (out of 5):5 Hamstrings (out of 5):5Tibialis Anterior (out of 5):5Peronei (out of 5):5EDB (out of 5):5Gastrocnemius (out of 5):5Straight Leg Raising:??90 degrees.?Sensory Exam:??As above, otherwise normal light touch, temperature, pinprick, vibration and joint-position sensations?,?Rhomberg sign is absent.?Coordination:??no ataxia,?no titubation,?jswtjz-oc-dwzq, mzcl-mcrh-vskb test and rapid alternating movements were normal.?Gait Exam:??Within normal limits.?Cerebellar Signs:??Iadnhv-lx-zhck and ldbx-ft-njgb is normal,?no dysdiadochokinesia?.?Extrapyramidal System:??No tremor, rigidity with normal fa cial expressions,?No bradykinesia, no bradyphrenia. Normal arm swing and posture. No propulsion or retropulsion.?Speech:??Normal,?no dysphasia or dysarthria..? Mini Mental Status Exam: Level of Consciousness:??Alert.?Orientation:??Knows correct year, month, date, day and season,?Knows correct city, county and state. Knows correct location and floor.?Registration:??Able to register 3 objects.?Attention:??Serial 7's performed accurately.?Recall:??Able to recall 3 out of 3 objects.?Language:??Normal spontaneous speech, fluency, repetition,naming, comprehension, reading and writing.?Total Score:??30/30.? General Examination: GENERAL APPEARANCE:??normal,?in no acute distress.?HEAD:??normocephalic,?atraumatic.?EYES:??sclera non-ic teric,?conjunctiva clear.?EARS:??auditory canal clear,?tympanic membrane intact, clear.?NOSE:??no lesions.?ORAL CAVITY:??gums normal,?mucosa moist,?no lesions.?THROAT:??clear.?NECK/THYROID:??no cervical lymphadenopathy,?thyroid normal,?neck supple, full range of motion,?no carotid bruit.?SKIN:??no rashes,?no significant birthmarks.?HEART:??S1, S2 normal,?no murmurs.?LUNGS:??clear anteriorly and posteriorly.?CHEST:??no gross rib deformity,?clear to auscultation.?BACK:??normal exam of spine.?EXTREMITIES:??no edema.?PERIPHERAL PULSES:??normal.? 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 continue Gabapentin 300mg bid. 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
--- OUTSIDE RECORDS SUMMARY | 2025-03-01 16:11 | XMS_ITS | Encounter Summary ---
Author Organization [facility] Address [address] [place] [address] Care Team Providers Care Extern Name Role Phone Michelle King Primary Care Provider + Encounter Details Date Type Department Care Team (Late Contact Info) Description 03/24/2024 Lab Requisition [facility] [address] [facility] [employer] [place] [address] Graham Lozada MD 299 [facility] [address] [place] [address] Encounter for screening for malignant neoplasm of colon Social History Tobacco Use Types Packs/Day Years Used Date Smoking Tobacco: Former Cigarettes 0 Q uit: 04/07/2001 Smokeless Tobacco: Never Alcohol [...] Department Care Team (Late Contact Info) Description 05/03/2025 1:00 PM EST Office Visit Internal Medicine - [place] [address] [facility] [address] [place] [address] Michelle King PA [address] [place] [address] [facility] [place] [address] documented as of this encounter Procedures Procedure [...] no glandular epithelium identified. 03/25/2024 1:49 PM [facility] Clinical Information Personal history of colonic polyps Dysphagia Finding: Polyp, history of Rosenthal's 03/25/2024 1:49 PM [facility] ([facility]) [facility] Gross Description A. Colon, ascending colon [...] multiple levels. dvb/DG 03/25/2024 1:49 PM EST [facility] Disclaimer Unless otherwise specified, all tissue is 10% NB formalin fixed and paraffin embedded. 03/25/2024 1:49 PM EST [facility] Tissue Esophageal structure / Unknown 03/23/2024 03/24/2024 8:14 AM EST Tissue specimen (specimen) Colon structure / Unknown 03/23/2024 03/24/2024 8:14 AM EST Tissue specimen (specimen) Colon structure / Unknown 03/23/2024 03/24/2024 8:14 AM EST Tissue specimen (specimen) Esophageal structure / Unknown 03/23/2024 03/24/2024 8:14 AM EST us Graham Lozada MD LAB PATHOLOGY ORDERABLES Fi nal Result [facility] 299 [place] [address], documented in this encounter Visit Diagnoses Diagnosis Encounter for screening for malignant neoplasm of colon documented in this encounter Care Teams Extern Relationship Specialty Start Date End Date Michelle King PA [address] [address] PCP - General Internal Medicine 05/03/21 documented as of this encounter
--- OUTSIDE RECORDS SUMMARY | 2025-03-01 16:11 | XMS_ITS ---
Author Name [facility] Organization Unknown History of Medication Use Medication Directions Dispensed Refills Start Date End Date Stat folic acid (FOLVITE) 1 mg tablet Take 1 tablet (1 mg total) by mouth 1 (one) time each day. 11/05/2024 active fluticasone propionate (FLONASE) 50 mcg/actuation nasal spray Administer 1 spray into each nostril 2 (two) times a day. Shake gently. Before first use, prime pump. After use, clean tip and replace cap. 10/17/2024 active gabapentin (NEURONTIN) 300 mg capsule Take 1 capsule (300 mg total) by mouth 3 (three) times a day. 09/16/2024 active lisinopriL (PRINIVIL,ZESTRIL) 5 mg tablet Take 1 tablet (5 mg total) by mouth 1 (one) time each day. 09/13/2024 active raloxifene (EVISTA) 60 mg tablet TAKE 1 TABLET BY MOUTH 1 TIME EACH DAY. 09/10/2024 active rOPINIRole (REQUIP) 1 mg tablet TAKE 1 TABLET BY MOUTH TWICE A DAY 09/08/2024 active thiamine 100 mg tablet Take 1 tablet (100 mg total) by mouth 1 (one) time each day. 08/06/2024 active oxyCODONE (ROXICODONE) 5 mg immediate release tablet Take 1 tablet (5 mg total) by mouth 1 (one) time each day if needed for severe pain. Max Daily Amount: 5 mg 07/30/2024 active LORazepam (ATIVAN) 2 mg tablet Take 1 tablet (2 mg total) by mouth at bedtime. 07/20/2024 active hydrOXYzine pamoate (VISTARIL) 50 mg capsule Take 1 capsule (50 mg total) by mouth 3 (three) times a day if needed for anxiety. 07/08/2024 active venlafaxine HCl (venlafaxine ER) 225 mg 24 hr tablet Take 1 tablet (225 mg total) by mouth 1 (one) time each day. Take in addition to 37.5mg daily 06/30/2024 active ondansetron (ZOFRAN) 4 mg tablet TAKE 1 TABLET BY MOUTH EVERY 8 HOURS NEEDED FOR NAUSEA 06/01/2024 active venlafaxine HCl (venlafaxine ER) 37.5 mg 24 hr tablet Take 1 tablet (37.5 mg total) by mouth 1 (one) time each day. Take in addition to 225mg daily 05/11/2024 active ARIPiprazole (ABILIFY) 2 mg tablet Take 1 tablet (2 mg total) by mouth at bedtime. 07/24/2023 active ibuprofen (ADVIL,MOTRIN) 800 mg tablet Take 1 tablet (800 mg total) by mouth 1 (one) time each day if needed for moderate pain. 03/26/2022 active pantoprazole (PROTONIX) 40 mg EC tablet Take 1 tablet (40 mg total) by mouth 2 (two) times a day. active Allergies Allergen Reaction Severity Comment Documented Date Source Statu s [facility] 12/21/2024 [facility] activ e Problems Problem Status Onset Date Problem Type Date of Resoluti on Source Alcoholism ([facility] V24, [facility] V28) active 2021-03-16 ProblemAct [facility] Disorder of skin active 2021-09-10 ProblemAct C T_THS[facility] Actinic keratosis active 2021-09-10 ProblemAct [facility] Basal cell carcinoma (BCC) of eyelid active 2015-09-05 ProblemAct [facility] HTN (hypertension) active 2021-03-16 ProblemAct [facility] Melanocytic nevus active 2021-02-20 ProblemAct [facility] Hammertoe of right foot active 2024-10-12 ProblemAct [facility] Disorder of pigmentation active 2017-12-23 ProblemAct [facility] Finding of above normal blood pressure active 2023-06-04 ProblemAct [facility] Gout active 2021-03-16 ProblemAct [facility] Neoplasm of uncertain behavior of skin active 2015-08-08 ProblemAct [facility] Insomnia active 2021-04-27 ProblemAct [facility] Contracture, right foot active 2024-10-12 ProblemAct [facility] Exposure to man-made ultraviolet light active 2023-06-04 ProblemAct [facility] Anxiety and depression active 2021-03-16 ProblemAct [facility] Arthritis active 2024-09-10 ProblemAct [facility] Seborrheic dermatitis active 2021-02-20 ProblemAct [facility] Metatarsalgia of right foot active 2024-10-12 ProblemAct [facility] Diverticulosis active 2021-03-16 ProblemAct [facility]_ [facility] Allergic rhinitis active 2021-03-16 ProblemAct [facility] Hemangioma of skin and subcutaneous tissue active 2017-12-23 ProblemAct [facility] DDD (degenerative disc disease), lumbar active 2021-03-16 ProblemAct [facility] Carcinoma in situ of skin of trunk active 2020-10-03 ProblemAct [facility] Varicose veins of lower extremity active 2021-03-16 ProblemAct [facility] ALEXIS (obstructive sleep apnea) active 2021-03-16 ProblemAct [facility] Vitamin D deficiency active 2021-03-16 ProblemAct [facility] Osteoporosis active 2021-03-16 ProblemAct [facility] Basal cell carcinoma (BCC) of lower extremity active 2023-06-04 ProblemAct [facility]_ [facility] Peripheral neuropathy active 2021-03-16 ProblemAct [facility] GERD (gastroesophageal reflux disease) active 2021-03-16 ProblemAct [facility] Benign neoplasm of skin of groin active 2017-12-23 ProblemAct [facility] Restless leg syndrome active 2021-03-16 ProblemAct [facility] Hallux varus (acquired), right foot active 2024-10-12 ProblemAct [facility]
--- OUTSIDE RECORDS SUMMARY | 2025-03-01 16:11 | XMS_ITS | Clinical Summary ---
Author Organization Patient Business Ser [facility] Address [address] [place] [address] Care Team Providers Care Zoology Professor Name Role Phone Michelle King Primary Care Provider + Allergies Active Allergy Reactions Criticality Noted Date Comments Grass Pollen 12/21/2024 Medications ARIPiprazole (ABILIFY) 2 mg tablet Take 1 tablet (2 mg total) by mouth at bedtime. 4 Active pantoprazole (PROTONIX) 40 mg EC tablet Take 1 tablet (40 mg total) by mouth 2 (two) times a day. Active ibuprofen (ADVIL,MOTRIN) 800 mg tablet Take 1 tablet (800 mg total) by mouth 1 (one) time each day if needed for moderate pain. 2 Active venlafaxine HCl (venlafaxine ER) 225 mg 24 hr tablet Take 1 tablet (225 mg total) by mouth 1 (one) time each day. Take in addition to 37.5mg daily 5 Active venlafaxine HCl (venlafaxine ER) 37.5 mg 24 hr tablet Take 1 tablet (37.5 mg total) by mouth 1 (one) time each day. Take in addition to 225mg daily 5 Active hydrOXYzine pamoate (VISTARIL) 50 mg capsuleIndicati ons:Anxiety Take 1 capsule (50 mg total) by mouth 3 (three) times a day if needed for anxiety. 30 capsule 5 Active LORazepam (ATIVAN) 2 mg tablet Take 1 tablet (2 mg total) by mouth at bedtime. 5 Active rOPINIRole (REQUIP) 1 mg tablet TAKE 1 TABLET BY MOUTH TWICE A DAY 180 tablet 1 5 Active raloxifene (EVISTA) 60 mg tablet TAKE 1 TABLET BY MOUTH 1 TIME EACH DAY. 90 tablet 1 5 Active gabapentin (NEURONTIN) 300 mg capsule Take 1 capsule (300 mg total) by mouth 3 (three) times a day. 270 each 3 5 09/17/19 26 Active fluticasone propionate (FLONASE) 50 mcg/actuation nasal spray Administer 1 spray into each nostril 2 (two) times a day. Shake gently. Before first use, prime pump. After use, clean tip and replace cap. 16 g 3 5 Active tiZANidine (Zanaflex) 4 mg tabletIndicatio ns:Neck pain on left side Take 1 tablet (4 mg total) by mouth at bedtime as needed for muscle spasms. 30 tablet 5 Active Active Problems Problem Noted Date Diagnosed Date Hallux varus (acquired), right foot 10/12/2024 Hammertoe of right foot 10/12/2024 Contracture, right foot 10/12/2024 Metatarsalgia of right foot 10/12/2024 Arthritis 09/10/2024 Basal cell carcinoma (BCC) of lower extremity Exposure to man-made ultraviolet light 4 Finding of above normal blood pressure 4 Disorder of skin 09/10/2021 Actinic keratosis 09/10/2021 Insomnia 04/27/2021 Alcoholism ([facility] V24, [facility] V28) 03/16/2021 Overview (01/08/2024): Per 10/17/2020 wellness visit, quit drinking 20 yrs ago after drinking for years. Allergic rhinitis 03/16/2021 Anxiety and depression 03/16/2021 DDD (degenerative disc disease), lumbar 03/16/20 21 Overview (01/08/2024): 03/15/2020 L3-4 and L4-5. Grade [...] Bilaterally w/ pain. Vitamin D deficiency 03/16/2021 Melanocytic nevus 02/20/2021 Seborrheic dermatitis 02/20/2021 Carcinoma in situ of skin of trunk 10/03/2020 Benign neoplasm of skin of groin 12/23/2017 Disorder of pigmentation 12/23/2017 Hemangioma of skin and subcutaneous tissue 12/23 Basal cell carcinoma (BCC) of eyelid 09/05/2015 Neoplasm of uncertain behavior of skin 6 Resolved Problems Problem Noted Date Diagnosed Date Resolved Date Alcohol withdrawal syndrome with complication ([facility] V24, [facility] V28) 07/06/2024 07/08/2024 Anxiety 03/16/2021 07/30/2024 Encounters Date Type Department Care Team Description 02/11/2025 Telephone Internal Medicine [address] [phone] Nakia Ayala MA 02/10/2025 2:15 PM EST Office Visit Internal Medicine [address] [address] Michelle King PA Neck pain on left side (Primary Dx) 02/03/2025 Telephone Internal Medicine [address] [phone] 01/25/2025 2:15 PM EDT Office Visit Internal [address] [address] Michelle King PA Primary hypertension (Primary Dx); Alcohol-induced acute pancreatitis without infection or necrosis; Alcohol use disorder; Anxiety and depression; Obesity (BMI 30.0-34.9) 01/18/2025 2:30 PM EDT Office Visit Orthopedic Surgery - [place] [address] [place] [phone] Joe Mercado DPM Hallux varus (acquired), right foot (Primary Dx); Hammertoe of right foot; Metatarsalgia of right foot; Capsulitis of left foot 12/31/2024 Telephone Thoracic Surgery - [place] [address] [place] [address] Magy[place]abe [place] 12/21/2024 3:30 PM EDT Office Visit Gastroenterology - [address] [facility] [address] [place] [address] Joyce Quinn PA Alcohol-induced acute pancreatitis without infection or necrosis (Primary Dx); Pseudocyst of pancreas from Last 3 Months Surgical History Surgery Date Site/Laterality Comments ESOPHAGOGASTRODUODENOSCOPY 12/07/19 15 PROCEDURE: [place] ESOPHAGOGASTRODUODENOSCOPY TRANSORAL DIAGNOSTIC; COMMENT: Normal OTHER SURGICAL HISTORY 04/2018 Left PROCEDURE: [place] ARTHRS WRST EXC&/RPR TRIANG FIBROCART&/JOINT; COMMENT: w/ ulnar shortening osteotomy L forearm. OTHER SURGICAL HISTORY Right right foot bunionecyomy COLONOSCOPY 4 - 04/06/20 24 TAx4, recall 3 years SECTION, LOW TRANSVERSE 1991 ESOPHAGOGASTRODUODENOSCOPY 4 - 04/06/20 24 with dilation Medical History Medical History Date Comments Restless [...] carcinoma; COMMENT: Below R eye. 06/2016 Alcoholism ([facility] V24, [facility] V28) 03/16/2021 DX:Alcoholism ([facility]) Diverticulosis 03/16/2021 DX:Diverticulosi s History of herpes zoster 03/16/2021 DX:Hist ory of herpes zoster; COMMENT: 07/12/2017 Varicose veins of lower extremity 03/16/2021 DX:Varicose veins of lower extremity; COMMENT: Bilaterally w/ pain. Allergic rhinitis 03/16/2021 DX:Allergic rh initis Vitamin D deficiency 03/16/2021 DX:Vitamin D deficiency ALXEIS (obstructive sleep apnea) 03/16/2021 DX :ALEXIS (obstructive sleep apnea) Anxiety and depression DX:Anxiet y and depression Insomnia DX:Insomnia Family History Medical History Relation Name Comments Anxiety disorder Brother Reilly Cobian Hypertension Brother Reilly Cobian Relation Name Status Comments Brother Reilly Cobian Alive Father Mother Social History Tobacco Use Types Packs/Day Years Used Date Smoking Tobacco: Former Cigarettes 0 Q uit: 01/05/1974 Smokeless Tobacco: Never Tobacco Cessation:Counseling Given: Not Answered Alcohol Use Standard Drinks/Week Comments Yes 21 (1 standard drink = 0.6 oz pu re alcohol) Housing Instability Answer Date Recorde d [...] care for your loved ones. For example, children's service worker or elderly care for an older adult? [...] Date Recorded What is your living situation? Unrecognized valu e 04/19/2024 Interpersonal Safety Answer Date Record ed Physical Abuse Unrecognized value 07/06/2024 Verbal Abuse Unrecognized value 07/06/2024 Comments Unknown Sex and Gender Information [...] Anes PTL Faustina A1 A5 Name Clin 1992 Term M Living Last Filed Vital Signs Vital Sign Reading Time Taken Comments Blood Pressure 120/90 02/10/2025 2:45 PM EST Pulse 92 02/10/2025 2:45 PM EST Temperature 37.1 C (98.7 F) 02/10/2025 2:15 PM EST Respiratory Rate 13 07/08/2024 3:53 PM EDT Oxygen Saturation 94% 02/10/2025 2:15 PM EST Inhaled Oxygen Concentration - - Weight 72.6 kg (160 lb) 02/10/2025 2:15 PM EST Height 157.5 cm (5' 2 ) 02/10/2025 2:15 PM EST Body Mass Index 29.26 02/10/2025 2:15 PM EST Plan of Treatment Upcoming Encounters Date Type Department Care Team (Late st Contact Info) Description 05/03/2025 1:00 PM EST Office Visit Internal Medicine - [place] [address] [place] [address] Michelle King, PA [address] [place] [address] Health Maintenance Due Date Last Done Comments DTaP,Tdap,and Td Vaccines (1 - Tdap) 02/06/1975 Hepatitis A Vaccines (1 of 2 - Risk 2-dose series) 02/06/1975 Pneumococcal Vaccine: 50+ Years (1 of 2 - PCV) 02/06/1975 Zoster Vaccines (1 of 2) 02/06/1975 Hepatitis C Screening 04/27/2021 Medicare Annual Wellness Visit 04/27/2021 COVID-19 Vaccine ( season) 2024 04/03/2021, 08/19/2020, 07/20/2020 Influenza Vaccine (#1) 2024 Breast Cancer Screening 03/04/2025 03/04/2023 Social Influencers of Health Screening 07/08/2025 07/08/2024 Hypertension/CHF/CAD Annual BMP Blood Test 12/21/2025 12/21/2024, 08/06/2024, 07/08/2024, Additional history exists Falls Risk Assessment 01/25/2026 01/25/2025 , 11/02/2024, 07/08/2024, Additional history exists Cholesterol Screening (Lipid Panel) 08/18/2028 08/19/2023, 08/19/2023 Osteoporosis Screening (Bone Density Screening) 11/07/2030 11/07/2020, 11/07/2020 RSV Immunization Adult Patients (1 - 1-dose 75+ series) 02/06/2031 Colorectal Cancer Screening: Colonoscopy 12/20/2034 12/20/2024, 03/23/2024, 02/26/2019 Depression Screening Completed 01/24/2025 HIB Vaccines Aged Out No longer eligi [...] Procedure Name Priority Date/Time Associated Diagnosis Comments INJECTION TENDON OR LIGAMENT Routine 01/18/2025 2:30 PM EDT Capsulitis of left foot CBC WITH AUTO DIFFERENTIAL Routine 12/21/2024 3:52 PM EDT Alcohol-induced acute pancreatitis without infection or necrosis VITAMIN B1 Routine 12/21/2024 3:52 PM EDT Alcohol-induced acute pancreatitis without infection or necrosis VITAMIN B12 AND FOLATE Routine 12/21/2024 3:52 PM EDT Alcohol-induced acute pancreatitis without infection or necrosis COMPREHENSIVE METABOLIC PANEL Routine 12/21/2024 3:52 PM EDT Alcohol-induced acute pancreatitis without infection or necrosis CBC AND DIFFERENTIAL Routine 12/21/2024 3:52 PM EDT Alcohol-induced acute pancreatitis without infection or necrosis COLONOSCOPY Routine 12/20/2024 2:39 PM EDT LIPID PANEL Routine 08/19/2023 EXTERNAL MAMMOGRAM REPORT Routine 03/04/2023 1:52 PM EST ELIZABETH DEXA AXIAL SKELETON Routine 11/07/2020 2:58 PM EDT Age-related osteoporosis without current pathological fracture from Last 3 Months or Most Recently Relevant to Health Maintenance Results * Injection tendon or ligament (01/18/2025 2:30 PM EDT) Narrative Joe Mercado DPM - 01/18/2025 2:30 PM EDT Joe Mercado DPM 01/18/2025 5:44 PM Injection tendon or ligament Indications: pain Details: 25 G needle Medications: 0.5 mL lidocaine (PF) 1 %; 40 mg triamcinolone acetonide 40 mg/mL Informed Consent: Laterality: Left Joe Mercado DPM IN CLINIC/BEDSIDE ORDERABLE S Final Result * (ABNORMAL) Vitamin B12 and folate (12/21/2024 3:52 PM EDT) Vitamin B-12 591 250 - 900 pcg/mL LAB CHEMISTRY METHOD 12/21/2024 5:10 PM EDT [facility] Folate >20.0(H) 2.8 - 17.0 ng/ml LAB CHEMISTRY METHOD 12/21/2024 5:10 PM EDT [facility] Blood Venous blood specimen / Unknown Venipuncture / Unknown 12/21/2024 3:52 PM EDT 12/21/2024 4:03 PM EDT us Joyce LONGO LAB BLOOD ORDERABLES Final Resu lt [facility] [address] [place] [address], [place] [phone] * (ABNORMAL) CBC auto differential (12/21/2024 3:52 PM EDT) [facility] WBC 9.3 4.8 - 10.8 K/mcL LAB HEMETOLOGY METHOD 12/21/2024 4:51 PM EDT [facility] RBC 4.90(H) 3.80 - 4.80 M/mcL LAB HEMETOLOGY METHOD 12/21/2024 4:51 PM EDT [facility] Hemoglobin 13.5 11.5 - 16.0 g/dL LAB HEMETOLOGY METHOD 12/21/2024 4:51 PM EDT [facility] Hematocrit 42.9 35.0 - 47.0 % LAB HEMETOLOGY METHOD 12/21[facility]2024 [facility] MCV 87.0 79.0 - 98.0 FL LAB HEMETOLOGY METHOD 12/21/2024 4:51 [facility] MCH 27.4 27.0 - 32.0 pcg LAB HEMETOLOGY METHOD 12/21/2024 4:51 [facility] MCHC 31.5(L) 32.0 - 37.0 g/dL LAB HEMETOLOGY METHOD 12/21/2024 4:51 PM [facility] RDW 13.8 11.0 - 15.0 % LAB HEMETOLOGY METHOD 12/21/2024 4:51 PM EDT [facility] Platelets 315 130 - 400 K/mcL LAB HEMETOLOGY METHOD 12/21/2024 4:51 PM EDT [facility] MPV 10.1 7.0 - 11.0 FL LAB HEMETOLOGY METHOD 12/21/2024 4:51 [facility] NRBC 0.0 <1.0 % LAB HEMETOLOGY METHOD 12/21/2024 4:51 PM EDT [facility] NRBC Absolute 0.00 <0.10 K/mcL LAB HEMETOLOGY METHOD 12/21/2024 4:51 PM EDT [facility] Neutrophils Relative 72.9 % LAB HEMETOLOGY METHOD 12/21/2024 4:51 PM [facility] Lymphocytes Relative 19.5 % LAB HEMETOLOGY METHOD 12/21/2024 4:51 PM [facility] Monocytes Relative 6.4 % LAB HEMETOLOGY METHOD 12/21/2024 4:51 PM [facility] Eosinophils Relative 0.4 % LAB HEMETOLOGY METHOD 12/21/2024 4:51 PM [facility] Basophils Relative 0.4 % LAB HEMETOLOGY METHOD 12/21/2024 4:51 PM [facility] Immature Granulocytes Relative 0.4 % LAB HEMETOLOGY METHOD 12/21/2024 4:51 PM [facility] Neutrophils Absolute 6.75 1.50 - 7.00 K/mcL LAB HEMETOLOGY METHOD 12/21/2024 4:51 PM [facility] Lymphocytes Absolute 1.81 1.00 - 5.00 K/mcL LAB HEMETOLOGY METHOD 12/21/2024 4:51 PM [facility] Monocytes Absolute 0.59 0.20 - 1.00 K/mcL LAB HEMETOLOGY METHOD 12/21/2024 4:51 PM [facility] Eosinophils Absolute 0.04 0.00 - 0.50 K/mcL LAB HEMETOLOGY METHOD 12/21/2024 4:51 PM [facility] Basophils Absolute 0.04 0.00 - 0.20 K/mcL LAB HEMETOLOGY METHOD 12/21/2024 4:51 PM [facility] Immature Granulocytes Absolute 0.04(H) 0.00 - 0.03 K/mcL LAB HEMETOLOGY METHOD 12/21/2024 4:51 PM EDT [facility] Blood Venous blood specimen / Unknown Venipuncture / Unknown 12/21/2024 3:52 PM EDT 12/21/2024 4:02 PM EDT [facility] [place] LAB BLOOD ORDERABLES Final Resu lt Performing Organization Address [facility] Co de Phone Number [facility] [address] [place] [address], [place] [phone] * Vitamin B1 (12/21/2024 3:52 PM EDT) [facility] Vitamin B1 Whole Blood 114 38 - 122 ug/L 12/24/2024 12:26 PM EDT [facility] Comment: This test was developed and the performance characteristics determined by [facility]. It has not been cleared or approved by the FDA. The laboratory is regulated under CLIA as qualified to perform high-complexity testing. This test is used for patient testing purposes. It should not be regarded as investigational or for research. Test performed at [facility], [address] , [place] [address] Angela Rodríguez MD, PhD - Front Office Supervisor Blood Venous blood specimen / Unknown Venipuncture / Unknown 12/21/2024 3:52 PM EDT 12/21/2024 4:04 PM EDT Joyce Quinn [place] LAB BLOOD ORDERABLES Final Resu lt Performing Organization Address [facility]/ZIP Co de Phone Number [facility] [address] [place] [address] * (ABNORMAL) Comprehensive metabolic panel (12/21/2024 3:52 PM EDT) [facility] Sodium 134 133 - 145 mmol/L LAB CHEMISTRY METHOD 12/21/2024 5:10 PM EDT [facility] Potassium 4.5 3.5 - 5.5 mmol/L LAB CHEMISTRY METHOD 12/21/2024 5:10 PM EDT [facility] Chloride 97 96 - 110 mmol/L LAB CHEMISTRY METHOD 12/21/2024 5:10 PM [facility] CO2 31 21 - 32 mmol/L LAB CHEMISTRY METHOD 12/21/2024 5:10 PM [facility] Anion Gap 6 3 - 11 LAB CHEMISTRY METHOD 12/21/2024 5:10 PM [facility] Glucose 110(H) 70 - 100 mg/dL LAB CHEMISTRY METHOD 12/21/2024 5:10 PM [facility] BUN 13 5 - 25 mg/dL LAB CHEMISTRY METHOD 12/21/2024 5:10 PM [facility] Creatinine 0.60 0.50 - 1.10 mg/dL LAB CHEMISTRY METHOD 12/21/2024 5:10 PM [facility] eGFR 98 >=60 mL/min/1. 73m2 LAB CHEMISTRY METHOD 12/21/2024 5:10 PM [facility] Comment:Calculation based on the Chronic Kidney Disease Epidemiology Collaboration (CKD-EPI) equation refit without adjustment for race. BUN/Creatinine Ratio 21.7 LAB CHEMISTRY METHOD 12/21/2024 5:10 PM [facility] Calcium 9.9 8.5 - 10.5 mg/dL LAB CHEMISTRY METHOD 12/21/2024 5:10 PM [facility] AST (SGOT) 21 10 - 42 unit/L LAB CHEMISTRY METHOD 12/21/2024 5:10 PM [facility] ALT (SGPT) 37 10 - 60 unit/L LAB CHEMISTRY METHOD 12/21/2024 5:10 PM [facility] Alkaline Phosphatase 97 42 - 121 unit/L LAB CHEMISTRY METHOD 12/21/2024 5:10 PM [facility] Total Protein 7.2 6.0 - 8.0 g/dL LAB CHEMISTRY METHOD 12/21/2024 5:10 PM [facility] Albumin 4.1 3.2 - 5.0 g/dL LAB CHEMISTRY METHOD 12/21/2024 5:10 PM EDT [facility] Total Bilirubin 0.4 0.0 - 1.4 mg/dL LAB CHEMISTRY METHOD 12/21/2024 5:10 PM EDT [facility] Blood Venous blood specimen / Unknown Venipuncture / Unknown 12/21/2024 3:52 PM EDT 12/21/2024 4:03 PM EDT Joyce LONGO LAB BLOOD ORDERABLES Final Resu lt [facility] [address] [place] [address], [place] [phone] * COLONOSCOPY (12/20/2024 2:39 PM EDT) Anatomical Region Laterality Modality Endoscopy Historical Provider [...] PM EDT Narrative 11/07/2020 2:58 PM EDT [facility] Diagnostic Imaging Department [address] [place] [address] Patient: OLLIE COBIAN Robel /Age/Sex: 1955 65 - F Unit#: [id number] Location/Status: SPDIMAM/REG CLI Mnemonic/Ordering Site: MAMDEXAAX/SPMAM Ordering [...] probability of hip fracture of 3.2%. Code 31221 Dictating Physician: MANJU TOURE MD Electronically Signed by: MANJU TOURE MD Dic Date/Time: 11/07/20 1457 Sign date/Time: 11/07/20 1458 Procedure Note Manju Toure MD - 04/03/2022 [facility] Diagnostic Imaging Department [address] [place] [id number] Patient: OLLIE COBIAN Robel DiggsB./Age/Sex: 1955 65 - F Unit#: [id number] Location/Status: SPDIMA/[facility] CLI Mnemonic/Ordering Site: [facility] Ordering Physician: Justin DILLARD MD Elizabeth Dexa Axial Skeleton - 11/07/20 - 1324 HISTORY: The patient is a 65-year-old postmenopausal [...] density of the femurs bilaterally is 0.766 gm/cm6shwyl is 76% of that of young normals [...] probability of hip fracture of 3.2%. Code 73679 Dictating Physician: MANJU TOURE MD Electronically Signed by: MANJU TOURE MD Dic Date/Time: 11/07/201456 Sign date/Time: 11/07/201457 us Abby Dillard MD IMG BI PROCEDURES [...] currently active code status orders. Care Teams Zoology Professor Relationship Specialty Start Date End Date Michelle King PA [address] [place] [address] PCP - General Internal Medicine 05/03/21
--- OUTSIDE RECORDS SUMMARY | 2025-03-01 16:11 | XMS_ITS | Encounter Summary ---
Author Organization [facility] Address [address] [place] [address] Care Team Providers Care Day Care Home Mother Name Role Phone Michelle King Primary Care Provider + Reason for Visit * Reason Onset Date Comments VNA INTAKE 02/11/2025 Encounter Details Date Type Department Care Team ([facility] st Contact Info) Description 02/11/2025 Telephone Internal Medicine - [place] [address] [facility] [address] [place] [address] Nakia Ayala MA Social History Tobacco Use Types Packs/Day Years Used Date Smoking Tobacco: Former Cigarettes 0 Q uit: 01/05/1974 Smokeless Tobacco: Never Alcohol Use Standard Drinks/Week Comments Yes 22 [...] for your loved ones. For example, child support case officer or elderly care for an older adult? [...] on file documented as of this encounter Progress Notes * Nakia Ayala MA - 03/01/2025 1:27 PM EST Patient is all set with services with [facility] * Nakia Ayala MA - 03/01/2025 11:43 AM EST Faxed referral to [facility] Waiting on response * Nakia Ayala MA - 02/11/2025 7:50 AM EST Faxed referral to [facility] Waiting on a response documented in this encounter Plan of Treatment Upcoming Encounters Date Type Department Care Team (Late st Contact Info) Description 05/03/2025 1:00 PM EST Office Visit Internal Medicine - [place] [address] [place] [address] Michelle King PA [address] [place] [address] documented as of this encounter Visit Diagnoses Not on filedocumented in this encounter Additional Health Concerns Assessment Noted Time PHQ-9 Depression Total Score: 16 025 1:07 PM EST documented as of this encounter Care Teams Day Care Home Mother Relationship Specialty Start Date End Date Michelle King PA [address] [facility] [address] [place] [address] PCP - General Internal Medicine 05/03/21 documented as of this encounter
== END 2025-03-01 13:16 | disposition home or self-care (01) ==
LOC: HO.HSM 12:39
PROVIDERS: PCP Physician Assistant; Visit Provider Psychiatry & Neurology Neurology
DX: G62.9 Polyneuropathy, unspecified (principal); F10.10 Alcohol abuse, uncomplicated; G31.2 Degeneration of nervous system due to alcohol; F10.20 Alcohol dependence, uncomplicated
CPT/HCPCS: 99214

== ENCOUNTER → 2025-03-01 12:38 | Outpatient (BNVA) | payer MEDICARE, MEDICAID, SELFPAY | PROVIDERS: PCP Physician Assistant; Visit Provider Psychiatry & Neurology Neurology | DX: G31.2 Degeneration of nervous system due to alcohol (principal); F10.20 Alcohol dependence, uncomplicated; G62.9 Polyneuropathy, unspecified | CPT/HCPCS: 99212 ==